=== PATIENT | female | born 1945 | race Caucasian/White ===

== ENCOUNTER 2018-04-18 06:56 | Emergency (ER) | payer BC, OTHER ==
[~2018-04-18] VITALS: Ht 162.6 cm; Wt 57.2 kg
[2018-04-18] MEDS ORDERED: ASPI-605 PO (07:12)
[2018-04-18] MEDS ORDERED: CHOLESTEROL MEDS (07:12)
[2018-04-18] MEDS ORDERED: B/P MEDS (07:12)
[2018-04-18] MEDS ORDERED: LORAZEPAM 0.5 MG TABLET PO ONE (07:15)
[2018-04-18] MEDS ORDERED: LORAZEPAM 1 MG TABLET ONE (07:18)
[2018-04-18 07:39] LABS: BASOPHILS # (AUTO) 0.1 K/uL (0.0-8.0); BASOPHILS % (AUTO) 0.9 % (0.0-2.0); EOSINOPHILS # (AUTO) 0.1 K/uL (0.0-0.7); EOSINOPHILS % (AUTO) 1.4 % (0.0-7.0); HEMATOCRIT 34.4 % (31.2-41.9); HEMOGLOBIN 12.2 g/dL (10.9-14.3); LYMPHOCYTES # (AUTO) 1.8 K/uL (20.0-40.0); LYMPHOCYTES % (AUTO) 27.6 % (20.5-51.5); MEAN CORPUSCULAR HEMOGLOBIN 33.9 uug (24.7-32.8); MEAN CORPUSCULAR HGB CONC 36 g/dL (32.3-35.6); MEAN CORPUSCULAR VOLUME 95.5 fL (75.5-95.3); MONOCYTES # (AUTO) 0.5 K/uL (2.0-10.0); NEUTROPHILS % (AUTO) 63.1 % (38.5-71.5); PLATELET COUNT (AUTO) 215 K/uL (179-408); WHITE BLOOD COUNT (AUTO) 6.4 K/uL (3.8-11.8)
[2018-04-18 07:46] LABS: POTASSIUM 3.8 mmol/L (3.5-5.1)
--- NOTE | 2018-04-18 08:05 | NUR ---
Patient discharged to home in stable conditon. Written and verbal after care instructions given. Patient verbalizes understanding of instructions.PT SAYS FEELS BETTER, DENEIS ANY DIZZINESS, SOB, OR ANY OTHER STRESS AT THIS TIME. PT IS NOT DRIVING. Addendum: 04/18/18 at 0827 by ALBARO PT WALKS IN STEADY GAIT.
[2018-04-18 08:07] VITALS: BP 110/77
--- NOTE | 2018-04-18 08:15 | NUR ---
PT CALED SON TO COME AND HEELER THE PT.
== END 2018-04-18 08:28 | disposition home or self-care (01) ==
LOC: ER 07:00
DX: F41.9 Anxiety disorder, unspecified (principal); Z88.2 Allergy status to sulfonamides; Z79.82 Long term (current) use of aspirin
CPT/HCPCS: 36415; 70030-TC; 85025; 93005; A4663